=== PATIENT | male | born 1945 | race Caucasian/White ===

== ENCOUNTER 2020-07-23 09:18 | Inpatient (IN) | payer MEDICARE ==
[2020-07-23] MEDS ORDERED: Acetaminophen 325 MG TAB PO PRN (14:21)
[2020-07-23] MEDS ORDERED: Ondansetron PF 4 MG/2 ML Vial IVP PRN (14:21)
[2020-07-23] MEDS ORDERED: Guaifenesin DM 100-10/5 ML UDCUP PO PRN (14:21)
[2020-07-23] MEDS ORDERED: Bisacodyl 5 MG TAB PO PRN (14:21)
[2020-07-23] MEDS ORDERED: Senokot S 8.6-50 MG TAB PO PRN (14:21)
[2020-07-23 14:52] VITALS: BMI 53.1
[2020-07-23] MEDS ORDERED: Morphine 4 MG/ML VIAL SLOW IVP PRN (14:56)
[2020-07-23] MEDS: Morphine 4 MG/ML VIAL IM SCH ×2 (15:07→15:12)
[2020-07-23] MEDS: HYDROcodone/Acetaminophen 10/325 mg Tablet PO PRN ×2 (16:54→21:04)
[2020-07-23] MEDS: MEROPENEM 1 GM/50 ML 1 GM in Premix Bag 1 BAG IVPB SCH ×2 (16:55→23:08)
[2020-07-23] MEDS ORDERED: VANCOMYCIN 2 GRAM/400 ML BAG 2 GM in Premix Bag 1 BAG IVPB SCH (17:45)
[2020-07-23] MEDS ORDERED: Sodium Chloride 0.9% 1,000 ML IV SCH (18:45)
[2020-07-23] MEDS: Morphine 4 MG/ML VIAL SLOW IVP PRN ×2 (18:47→23:03)
[2020-07-23] MEDS: Enoxaparin Sodium 40 MG/0.4 ML SYRINGE SC SCH (20:12)
[2020-07-23] MEDS: Gabapentin 300 MG CAP PO SCH (20:13)
[2020-07-23] MEDS: Famotidine 20 MG TAB PO SCH (20:13)
[2020-07-23] MEDS: tiZANidine HCl 4 MG TAB PO SCH (20:15)
[2020-07-23 20:57] LABS: SARS-CoV-2 PCR by NAA Not Detected (NotDetected)
[2020-07-24] MEDS: HYDROcodone/Acetaminophen 10/325 mg Tablet PO PRN ×3 (01:30→20:21)
[2020-07-24] MEDS: Morphine 4 MG/ML VIAL SLOW IVP PRN ×3 (05:32→23:39)
[2020-07-24] MEDS: Vancomycin 1.5 GRAM/300 ML BAG 1.5 GM in Premix Bag 1 BAG IVPB SCH ×2 (05:35→18:52)
[2020-07-24 05:48] LABS: #Eosinphils 0.3 thou/uL (0.0-0.7); #Lymphocytes 1.5 thou/uL (1.20-3.40); #Monocytes 0.8 thou/uL (0.11-0.59); #Neutrophils 5.4 thou/uL (1.40-6.50); %Basophils 0.2 % (0.0-1.0); %Eosinophils 3.8 % (0.0-10.0); %Lymphocytes 18.5 % (21.0-51.0); %Monocytes 9.5 % (0.0-10.0); Hemoglobin 10.4 g/dL (14.0-18.0); Mean Corpuscular HGB CONC 32.6 g/dL (32.0-36.0); Mean Corpuscular Hemoglobin 29.2 pg (27.0-31.0); Mean Corpuscular Volume 89.6 fL (78.0-98.0); Mean Platelet Volume 7.4 fL (7.4-10.4); Platelet Count 196 thou/uL (130-400); RBC Distribution Width 15.6 % (11.5-14.5); Red Blood Cell (RBC) Count 3.57 mill/uL (4.70-6.10); White Blood Cell (WBC) Count 7.9 thou/uL (4.8-10.8)
[2020-07-24 05:59] LABS: INR-International Normal Ratio 1.3; Prothrombin Time 15.9 sec (12.0-14.7)
[2020-07-24 06:19] LABS: ALT (SGPT) 20 U/L (8-55); AST (SGOT) 40 U/L (5-34); Albumin 2.2 g/dL (3.4-4.8); Alkaline Phosphatase 174 U/L (40-110); Anion Gap 11 mmol/L (10-20); BUN (Urea Nitrogen) 22 mg/dL (8.4-25.7); Bilirubin, Total 0.6 mg/dL (0.2-1.2); Calc. Creatinine Clearance 154 mL/min (70-130); Calcium 8.5 mg/dL (7.8-10.44); Carbon Dioxide 33 mmol/L (23-31); Chloride 94 mmol/L (98-107); Globulin 3.3 g/dL (2.4-3.5); Glucose 99 mg/dL (83-110); Potassium 3.9 mmol/L (3.5-5.1); Protein, Total 5.5 g/dL (5.8-8.1); Sodium 134 mmol/L (136-145)
[2020-07-24] MEDS: tiZANidine HCl 4 MG TAB PO SCH ×2 (08:30→20:21)
[2020-07-24] MEDS: Gabapentin 300 MG CAP PO SCH ×4 (08:30→20:20)
[2020-07-24] MEDS: Enoxaparin Sodium 40 MG/0.4 ML SYRINGE SC SCH ×2 (08:31→20:23)
[2020-07-24] MEDS: Famotidine 20 MG TAB PO SCH ×2 (08:31→20:20)
[2020-07-24] MEDS: Lidocaine 5% Patch TD SCH (08:32)
[2020-07-24] MEDS: MEROPENEM 1 GM/50 ML 1 GM in Premix Bag 1 BAG IVPB SCH ×3 (08:32→23:38)
[2020-07-24] MEDS: Methocarbamol 500 MG TAB PO SCH ×2 (17:22→20:23)
[2020-07-24] MEDS: Lidocaine Patch Removal TOP SCH (20:24)
[2020-07-25] MEDS: Morphine 4 MG/ML VIAL SLOW IVP PRN ×4 (03:58→22:27)
[2020-07-25] MEDS: Levothyroxine Sodium 75 MCG TAB PO SCH (05:42)
[2020-07-25 05:43] LABS: Vancomycin, Trough 28.1 ug/mL
[2020-07-25] MEDS: Vancomycin 1.5 GRAM/300 ML BAG 1.5 GM in Premix Bag 1 BAG IVPB SCH (06:15)
[2020-07-25] MEDS: Mometasone 100 MCG/Formoterol 5 MCG 120 PUFF INHALER INH SCH (07:24)
[2020-07-25] MEDS: tiZANidine HCl 4 MG TAB PO SCH ×2 (08:47→21:19)
[2020-07-25] MEDS: MEROPENEM 1 GM/50 ML 1 GM in Premix Bag 1 BAG IVPB SCH ×3 (08:47→23:54)
[2020-07-25] MEDS: Docusate 100 MG CAP PO SCH (08:47)
[2020-07-25] MEDS: Allopurinol 300 MG TAB PO SCH (08:48)
[2020-07-25] MEDS: Gabapentin 300 MG CAP PO SCH ×3 (08:48→21:20)
[2020-07-25] MEDS: Famotidine 20 MG TAB PO SCH ×2 (08:48→21:19)
[2020-07-25] MEDS: Bumetanide 1 MG TAB PO SCH (08:51)
[2020-07-25] MEDS: Methocarbamol 500 MG TAB PO SCH ×3 (08:52→21:20)
[2020-07-25] MEDS: Lidocaine 5% Patch TD SCH (08:52)
[2020-07-25] MEDS: VANCOMYCIN 2 GRAM/400 ML BAG 2 GM in Premix Bag 1 BAG IVPB SCH (18:23)
[2020-07-25] MEDS: HYDROcodone/Acetaminophen 10/325 mg Tablet PO PRN (21:20)
[2020-07-25] MEDS: Lidocaine Patch Removal TOP SCH (21:20)
[2020-07-26] MEDS: Levothyroxine Sodium 75 MCG TAB PO SCH (06:23)
[2020-07-26] MEDS: Morphine 4 MG/ML VIAL SLOW IVP PRN ×2 (06:24→10:34)
[2020-07-26] MEDS: Mometasone 100 MCG/Formoterol 5 MCG 120 PUFF INHALER INH SCH (06:49)
[2020-07-26] MEDS ORDERED: Sodium Bicarbonate 2.5 MEQ/5 ML VIAL ONE (08:04)
[2020-07-26] MEDS ORDERED: Midazolam HCl 2 mg/2 ml Vial ONE (08:04)
[2020-07-26] MEDS ORDERED: Fentanyl 100 MCG/2 ML VIAL ONE (08:04)
[2020-07-26] MEDS: Gabapentin 300 MG CAP PO SCH ×3 (10:20→21:08)
[2020-07-26] MEDS: Methocarbamol 500 MG TAB PO SCH ×3 (10:20→21:08)
[2020-07-26] MEDS: Bumetanide 1 MG TAB PO SCH (10:20)
[2020-07-26] MEDS: Allopurinol 300 MG TAB PO SCH (10:20)
[2020-07-26] MEDS: Docusate 100 MG CAP PO SCH (10:20)
[2020-07-26] MEDS: tiZANidine HCl 4 MG TAB PO SCH ×2 (10:21→21:08)
[2020-07-26] MEDS: Famotidine 20 MG TAB PO SCH ×2 (10:21→21:08)
[2020-07-26] MEDS: MEROPENEM 1 GM/50 ML 1 GM in Premix Bag 1 BAG IVPB SCH ×3 (10:22→23:08)
[2020-07-26] MEDS: Lidocaine 5% Patch TD SCH (10:34)
[2020-07-26] MEDS ORDERED: Iopamidol 370 76% 100 ML VIAL ONE (10:59)
[2020-07-26] MEDS: VANCOMYCIN 2 GRAM/400 ML BAG 2 GM in Premix Bag 1 BAG IVPB SCH (17:41)
[2020-07-26] MEDS: HYDROcodone/Acetaminophen 10/325 mg Tablet PO PRN (17:49)
[2020-07-26] MEDS: Lidocaine Patch Removal TOP SCH (21:09)
[2020-07-27] MEDS: Levothyroxine Sodium 75 MCG TAB PO SCH (05:22)
[2020-07-27] MEDS: Mometasone 100 MCG/Formoterol 5 MCG 120 PUFF INHALER INH SCH (07:07)
[2020-07-27] MEDS: Bumetanide 1 MG TAB PO SCH (07:50)
[2020-07-27] MEDS: Methocarbamol 500 MG TAB PO SCH ×2 (07:50→14:56)
[2020-07-27] MEDS: Allopurinol 300 MG TAB PO SCH (07:50)
[2020-07-27] MEDS: Gabapentin 300 MG CAP PO SCH ×2 (07:50→14:55)
[2020-07-27] MEDS: Famotidine 20 MG TAB PO SCH (07:51)
[2020-07-27] MEDS: tiZANidine HCl 4 MG TAB PO SCH (07:51)
[2020-07-27] MEDS: Lidocaine 5% Patch TD SCH (07:53)
[2020-07-27] MEDS: Docusate 100 MG CAP PO SCH (07:53)
[2020-07-27] MEDS: MEROPENEM 1 GM/50 ML 1 GM in Premix Bag 1 BAG IVPB SCH ×2 (08:16→16:44)
[2020-07-27 08:29] VITALS: TEMP 97.9
[2020-07-27] MEDS ORDERED: Bumetanide 1 MG TAB PO SCH (16:30)
[2020-07-27 17:21] LABS: Vancomycin, Trough 19.4 ug/mL
[2020-07-27] MEDS: VANCOMYCIN 2 GRAM/400 ML BAG 2 GM in Premix Bag 1 BAG IVPB SCH (17:42)
[2020-07-27 19:56] VITALS: BP 115/71
[2020-07-27] MEDS ORDERED: Apixaban 5 MG TAB PO SCH (21:00)
== END 2020-07-27 20:54 | disposition short-term general hospital (02) | DRG 540 ==
LOC: T4-B 09:18
PROVIDERS: ADMIT Family Medicine; ATTEND Internal Medicine
PROC: 009U3ZX Drainage of Spinal Canal, Percutaneous Approach, Diagnostic (ICD-10-PCS; principal; 2020-07-26)
PROC: B01B1ZZ Fluoroscopy of Spinal Cord using Low Osmolar Contrast (ICD-10-PCS; 2020-07-26)
DX: M46.26 Osteomyelitis of vertebra, lumbar region (principal); N39.0 Urinary tract infection, site not specified; Z16.12 Extended spectrum beta lactamase (ESBL) resistance; Z68.43 Body mass index [BMI] 50.0-59.9, adult; L03.116 Cellulitis of left lower limb; L03.115 Cellulitis of right lower limb; M46.46 Discitis, unspecified, lumbar region; Z20.822 Contact with and (suspected) exposure to COVID-19; B96.29 Other Escherichia coli [E. coli] as the cause of diseases classified elsewhere; E03.9 Hypothyroidism, unspecified; I11.0 Hypertensive heart disease with heart failure; E66.01 Morbid (severe) obesity due to excess calories; I48.0 Paroxysmal atrial fibrillation; M10.9 Gout, unspecified; G62.9 Polyneuropathy, unspecified; I50.9 Heart failure, unspecified; Z80.9 Family history of malignant neoplasm, unspecified; Z79.899 Other long term (current) drug therapy; Z79.890 Hormone replacement therapy
CPT/HCPCS: 36415; 72132; 77002; 80053; 80202; 82565; 85025; 85610; 85652; 86140; 87070; 87205; 87635; J1650; J2185; J2250; J2270; J3010; J3370; Q9967; U0003; U0005